=== PATIENT | female | born 1970 | race Caucasian/White ===

== ENCOUNTER 2020-04-11 09:04 | Outpatient (REF) | payer BC, SELFPAY | END 2020-04-11 09:05 | disposition home or self-care (01) | LOC: HO.LAB 09:04 | PROVIDERS: Visit Provider Internal Medicine | DX: Z20.828 Contact with and (suspected) exposure to other viral communicable diseases (principal) | CPT/HCPCS: C9803; U0003 ==

== ENCOUNTER 2020-04-19 13:58 | Outpatient (REF) | payer BC, SELFPAY | END 2020-04-19 13:59 | disposition home or self-care (01) | LOC: HO.LAB 13:58 | PROVIDERS: Visit Provider Internal Medicine | DX: Z20.828 Contact with and (suspected) exposure to other viral communicable diseases (principal) | CPT/HCPCS: C9803; U0003 ==

== ENCOUNTER 2020-05-18 07:04 | Outpatient (REF) | payer BC, SELFPAY | END 2020-05-18 07:05 | disposition home or self-care (01) | LOC: HO.LAB 07:04 | PROVIDERS: PCP Family Medicine; Visit Provider Internal Medicine | DX: Z20.828 Contact with and (suspected) exposure to other viral communicable diseases (principal) | CPT/HCPCS: C9803; U0003 ==

== ENCOUNTER 2020-06-15 09:43 | Outpatient (REF) | payer BC, SELFPAY | END 2020-06-15 09:44 | disposition home or self-care (01) | LOC: HO.LAB 09:43 | PROVIDERS: Visit Provider Internal Medicine | DX: Z20.822 Contact with and (suspected) exposure to COVID-19 (principal) | CPT/HCPCS: 36415; C9803; U0003 ==

== ENCOUNTER 2020-12-25 10:21 | Emergency (ER) | payer BC, SELFPAY ==
[2020-12-25 10:24] VITALS: BP 131/65; PULSE 53; RESP 17; TEMP 36.3; O2SAT 100; BMI 22.1
--- NOTE | 2020-12-25 10:29 | PC.NURSE ---
small pin trick area noted to r index finger (lateral)
--- NOTE | 2020-12-25 12:18 | ED_ITS ---
HPI - Animal Bite General Chief Complaint: Animal Bite Stated Complaint: BITE BY SKUNK Source: patient Mode of arrival: ambulatory Limitations: no limitations History of Present Illness HPI narrative: Patient presents to the ED for skunk bite on right index finger. Patient states she was helping a injured stunk and then it bit her. Patient was sent by [facility] to receive rabies prophylaxis. Patient does not know when she had last tetanus shot. Related Data Previous Rx's Medication Instructions Recorded amoxicillin-pot clavulanate 1 tab PO BID 10 Days #20 tab 12/25/20 [Augmentin] Allergies Allergy/AdvReac Type Severity Reaction Status Date / Time No Known Allergies Allergy Verified 12/25/20 11:40 Review of Systems Review of Systems: Yes all other systems are reviewed and are negative Constitutional: Constitutional: Reports as per HPI and Reports no additional constitutional complaints Eyes: Eyes: Reports as per HPI and Reports no additional eye complaints ENT: Reports system reviewed and no additional complaints, except as documen denise and Reports as per HPI Cardiovascular: Cardiovascular: Reports as per HPI and Reports no additional cardiovascular complaints Respiratory: Respiratory: Reports as per HPI and Reports no additional respiratory complaints Gastrointestinal: Gastrointestinal: Reports as per HPI and Reports no additional gastrointestinal complaints Genitourinary: Genitourinary: Reports no additional female genitourinary complaints and Reports as per HPI Musculoskeletal: Musculoskeletal: Reports no additional musculoskeletal complaints and Reports as per HPI Comments: Right index finger skunk bite Neurologic: Reports system reviewed and no additional complaints, except as d ocumented and Reports as per HPI Psychiatric: Psychiatric: Reports no additional psychiatric complaints and Reports as per HPI [facility] Social History Social History Advance Directives: No Advance Directives Information Provided: No Physical Exam Vital Signs: Vital Signs: Last Vital Signs Temp 97.3 F 12/25/20 10:24 Pulse 53 12/25/20 10:24 Resp 17 12/25/20 10:24 BP 131/65 12/25/20 10:24 Pulse Ox 100 12/25/20 10:24 Body Mass Index 22.1 Const: General: cooperative, healthy appearing, comfortable, no acute distress, well developed, alert, awake and Physically active Orientation/consciousness: patient oriented x3 HENMT: Head: Yes normal to inspection, Yes No palpable skull fracture present, Yes normocephalic, Yes atraumatic and No abrasion Eyes: General: appearance normal, both eyes and all related structures Neck: Neck: Yes normal visual inspection, Yes full ROM, Yes no lymphadenopathy, Yes no meningeal signs, Yes trachea midline, Yes supple and No tender Chest: Chest palpation & inspection: normal inspection of the chest and normal palpation of entire chest wall Resp: Effort & Inspection: normal respiratory effort and able to speak in complete sentences Auscultation: clear to auscultation bilaterally Cardio: Jugular venous distension: no JVD Heart sounds: S1 normal heart sound present and S2 normal heart sound present GI: Inspection: Yes normal to inspection and No abdominal wall ecchymosis Palpation (GI): Soft to palpation, not firm, nontender, no guarding and not rigid : General: No CVA tenderness and Yes no CVA tenderness Back/Spine/Pelvis: Back: no CVA tenderness, No CVA tenderness and No back tenderness Skin: Other: Right index finger superficial abrasion Neuro: General: patient oriented x3, gait normal, no meningeal signs and CN's II-XI intact bilaterally Cranial nerves: Yes CN's II-XII intact bilaterally Extrem: General: Yes normal to inspection and Yes full ROM Hand/finger images: 1. Superficial abrasion. No indication for laceration repair. Patient has complete range of motion of finger and negative for signs of tendon injury. Capillary refill intact. Rest of extremity normal. Vascular/motor/neuro exam intact Psych: Appearance: grossly normal, well kempt and not disheveled Course Course Course Narrative: Will order rabies immune globulin, vaccine, and tetanus. Reevaluation(s) Reevaluation #1: Some of the rabies immunoglobulin was injected into wound on finger and the rest injected into the right deltoid. Nurse will give vaccine and tetanus. Time: 12:57 MDM - Animal Bite MDM Narrative Medical decision making narrative: Skunk bite Discharge Plan Discharge Clinical Impression: Bite by animal Patient Disposition: Home, Self-Care Instructions: Animal Bite (ED) Additional Instructions: Return to the ED immediately for any finger swelling, redness, pus discharge, foul odor, fever, chills, development of red streaks, chest pain, shortness breath, or any other concerning symptoms. Please come to the ED as schedule for remaining rabies vaccine injections. Prescriptions: New amoxicillin-pot clavulanate [Augmentin] 875-125 mg tablet 1 tab PO BID 10 Days Qty: 20 RF: 0 Interventions: ED Discharge Assessment Last Done: 07/25/21 13:43 Discharge Date/Time: 12/25/20 13:44 Print Language: Thai
[2020-12-25] MEDS: Rabies Immune Globulin/PF 900 UNIT/3 ML VIAL 1133.98 UNIT IM (13:00)
[2020-12-25] MEDS: Rabies Vaccine (PCEC)/PF 1 ML VIAL IM (13:00)
[2020-12-25] MEDS: Diphth,Pertus(ACell),Tet Adult 0.5 ML SYRINGE IM (13:02)
--- NOTE | 2020-12-25 13:44 | PC.NURSE ---
Faxed necessary forms to short stay and pharmacy. Faxed forms to animal control as well.
== END 2020-12-25 13:44 | disposition home or self-care (01) ==
PROVIDERS: Emergency Provider Emergency Medicine; PCP Family Medicine
DX: S60.470A Other superficial bite of right index finger, initial encounter (principal); W53.81XA Bitten by other rodent, initial encounter; Y93.9 Activity, unspecified; Y92.828 Other wilderness area as the place of occurrence of the external cause; Y99.9 Unspecified external cause status; Z20.3 Contact with and (suspected) exposure to rabies
CPT/HCPCS: 90375; 90471; 90675; 90715; 96372; 99283; 99284

== ENCOUNTER 2020-12-28 07:36 | Outpatient (REF) | payer BC, SELFPAY | END 2020-12-28 07:37 | disposition home or self-care (01) | LOC: HO.MDS 07:36 | PROVIDERS: PCP Family Medicine | DX: Z29.14 Encounter for prophylactic rabies immune globulin (principal); S61.250D Open bite of right index finger without damage to nail, subsequent encounter; W55.81XD Bitten by other mammals, subsequent encounter; Z20.3 Contact with and (suspected) exposure to rabies | CPT/HCPCS: 90471; 90675 ==

== ENCOUNTER 2021-01-01 11:21 | Outpatient (REF) | payer BC, SELFPAY | END 2021-01-01 11:22 | disposition home or self-care (01) | LOC: HO.MDS 11:21 | PROVIDERS: PCP Family Medicine | DX: Z29.14 Encounter for prophylactic rabies immune globulin (principal); S60.470D Other superficial bite of right index finger, subsequent encounter; W55.81XD Bitten by other mammals, subsequent encounter; Z20.3 Contact with and (suspected) exposure to rabies | CPT/HCPCS: 90675 ==